=== PATIENT | female | born 1995 | race Caucasian/White ===

== ENCOUNTER 2018-08-02 19:05 | Emergency (ER) | payer OTHER ==
--- NOTE | 2018-08-02 19:58 | EDPHY ---
H & P Stated Complaint: Was cleaning wine glass that broke and cut R wrist Time Seen by Provider: 08/02/18 19:55 HPI/ROS: HPI: This is a 22-year-old female who presents with Chief Complaint: Was cleaning wine glass that broke and cut Left wrist Location: right wrist Quality: Laceration Duration: Prior to arrival Signs and Symptoms: + bleeding, no radiation, no numbness, no weakness, no tingling, no decreased range of motion, no swelling, + pain, no fever Timing: Acute Severity: Mild Context: Patient is right-hand dominant, was cleaning a wine glass when she accidentally dropped out of her hand and it landed on the counter top. She then reports that 1 of the pieces cut her left wrist accidentally. Immediately started to bleed and she felt mild pain. Reports tetanus is current. Denies any paresthesias, weakness, radiculopathy, decreased range of motion. Patient was working at [employer] on [employer]. Modifying Factors: Direct pressure Comment: ROS: A comprehensive 10 system review of systems is otherwise negative aside from elements mentioned in the history of present illness. MEDICAL/SURGICAL/SOCIAL HISTORY: Medical history: Depression. LMP 1-7 days ago Surgical history: Denies Social history: Student at [employer] CONSTITUTIONAL: Extremely polite and cooperative young adult white female, awake and alert, no obvious distress HEENT: Atraumatic and normocephalic EXTREMITIES: 2/2 pulses, strength 5/5, right WRIST: 3.0 cm laceration volar radial aspect; Extension to 70, flexion to 80, radial deviation to 20 degree, ulnar deviation to 30, no scaphoid tenderness, no tenderness over ulnar styloid , no tenderness over radial styloid. no deformities, no clubbing, no cyanosis or edema. NEUROLOGICAL: no focal neuro deficits. GCS 15. SKIN: Warm and dry, no erythema. no rash. Good capillary refill. Source: Patient Exam Limitations: No limitations - Personal History LMP (Females 10-55): 1-7 Days Ago Current Tetanus Diphtheria and Acellular Pertussis (TDAP): Yes - Medical/Surgical History Hx Asthma: No Hx Chronic Respiratory Disease: No Hx Diabetes: No Hx Cardiac Disease: No Hx Renal Disease: No Hx Cirrhosis: No Hx Alcoholism: No Hx HIV/AIDS: No Hx Splenectomy or Spleen Trauma: No Other PMH: anxiety, cyst removal L wrist - Social History Smoking Status: Never smoked Constitutional: Initial Vital Signs Temperature (C) 36.6 C 08/02/18 19:15 Heart Rate 76 08/02/18 19:15 Respiratory Rate 16 08/02/18 19:15 Blood Pressure 135/90 H 08/02/18 19:15 O2 Sat (%) 96 08/02/18 19:15 O2 Delivery Mode Room Air Allergies/Adverse Reactions: No Known Allergies Allergy (Unverified 08/02/18 19:13) Home Medications: Medication Instructions Recorded Zoloft 50mg (*) 08/02/18 Medical Decision Making Procedures: Procedure: Laceration repair. Verbal consent was obtained from the patient. The 3.0 cm, simple, linear laceration on the right volar aspect of wrist was anesthetized in the usual fashion using 4 mL of 1% lidocaine with epinephrine. The wound was irrigated, draped and explored to its base with a gloved finger. There were no deep structures involved. No tendon injury was identified. The wound was repaired with #4, 4 0 Prolene. Good hemostasis was achieved and patient tolerated procedure well. Clean sterile dressing applied. The procedure was performed by myself. Procedure: Splint placement. A right Velcro wrist splint was applied by the emergency computer laboratory technician. After application of the splint I returned and re-examined the patient. The splint was adequately immobilizing the joint and distal to the splint the patient's circulation and sensation was intact. ED Course/Re-evaluation: Vital signs reviewed and stable upon arrival. Tetanus is current. Local anesthesia provided and copiously irrigated Laceration repaired with 3 nonabsorbable sutures Placed in Velcro wrist splint as patient was to return to work at [employer] as it is stampede night to immobilize. Verbal and written wound care instructions provided No signs of neurovascular compromise/tenting of skin/compartment syndrome/ extremities and joints examined above and below area of concern and are neurovascularly intact. This patient was seen under the supervision of my secondary supervising physician. I evaluated care for this patient independently. Discussed this patient with Dr. Tran. Differential Diagnosis: Differential diagnosis includes but is not limited to laceration, nerve injury, tendon injury, foreign body. Departure - Departure Disposition: Home, Routine, Self-Care Clinical Impression: Laceration of right wrist without complication Qualifiers: Encounter type: initial encounter Qualified Code(s): S61.511A - Laceration without foreign body of right wrist, initial encounter Condition: Good Instructions: Care For Your Stitches (ED), Laceration (ED) Additional Instructions: Wear the Velcro wrist splint while at work until sutures are removed. Keep the dressing dry and in place for 48 hours. After 48 hours, you may remove the dressing; wash the site daily with mild soap and water; then pat dry. Take Tylenol 650 mg every 4 hours and/or Ibuprofen 600 mg every 8 hours with food as needed for pain. Wound Care Follow-Up: Removal of sutures in [10-14] days. Suture removal is complimentary in uncomplicated cases. Infection or abnormal findings would require reevaluation by the MD. In that case, you may be billed. Return to the ER immediately if you experience redness, red streaks, have fevers /chills, flu like symptoms, limited range of motion, or any other symptoms that concern you. Referrals: Lauro Prabhakar MD [Medical Doctor] - As per Instructions Stand Alone Forms: Work Excuse
[2018-08-02 20:24] VITALS: BP 130/90
== END 2018-08-02 20:23 | disposition home or self-care (01) ==
PROC: 0HQDXZZ Repair Right Lower Arm Skin, External Approach (ICD-10-PCS; principal; 2018-08-02)
DX: S61.511A Laceration without foreign body of right wrist, initial encounter (principal); W25.XXXA Contact with sharp glass, initial encounter; Y93.G1 Activity, food preparation and clean up; Y92.511 Restaurant or cafe as the place of occurrence of the external cause; Y99.0 Civilian activity done for income or pay
CPT/HCPCS: L3984